=== PATIENT | female | born 1965 | race African-American/Black ===

== ENCOUNTER 2017-04-09 13:30 | Emergency (ER) | payer OTHER ==
[~2017-04-09] VITALS: Ht 167.6 cm; Wt 81.7 kg
[~2017-04-09 13:30] MED LIST: CARAFATE 1 GM TA1 G1 PO; FOLGARD TABLET1 EAC1 PO; NOHOMEMEDICATIONS; NORCO 5-325 TA1 EACH PO; ONDANSETRON HCL4 M2 PO; PEPCID40 MG PO; PREVACID 30MG C30 M1 PO
[2017-04-09 14:12] LABS: HEMATOCRIT 40.5 % (37.0-47.0); HEMOGLOBIN 13.5 gm/dL (12.0-15.0); MCH 30.8 pg (26.0-34.0); MCHC 33.4 g/dL (28.0-37.0); MCV 92.1 fL (80.0-100.0); PLATELET COUNT 227 thou/uL (150-400); RBC 4.39 mil/uL (4.20-5.00); RDW 13.1 % (10.5-14.5); WBC 4.9 thou/uL (4.0-11.0)
[2017-04-09 14:13] LABS: MANUAL DIFF YES
[2017-04-09 14:20] LABS: CALCIUM 9.4 mg/dL (8.5-10.1); POTASSIUM 4.5 mmol/L (3.5-5.1)
[2017-04-09 14:26] LABS: ALBUMIN 3.6 g/dL (3.4-5.0); TOTAL BILIRUBIN 0.3 mg/dL (<0.1-1.0); TOTAL PROTEIN 7.5 g/dL (6.4-8.2)
[2017-04-09 14:31] LABS: ABSOLUTE NEUTROPHILS 2.7 thou/uL (1.4-8.2); TOTAL CELL COUNT 100
[2017-04-09 14:32] LABS: PLATELET ESTIMATE NORMAL
[2017-04-09 14:56] LABS: URINE BILIRUBIN NEGATIVE (Negative); URINE BLOOD NEGATIVE (Negative); URINE COLOR YELLOW; URINE GLUCOSE-RANDOM* NEGATIVE (Negative); URINE KETONES NEGATIVE (Negative); URINE NITRITE POSITIVE (Negative); URINE PROTEIN (DIPSTICK) NEGATIVE (Negative); URINE SPECIFIC GRAVITY 1.025 (1.003-1.035); URINE UROBILINOGEN 0.2 E.U./dl (0.2-1.0)
[2017-04-09 16:17] LABS: BACTERIA >30 Many /HPF (None Seen); SQUAMOUS 4-10 Moderate /LPF (0-3)
[2017-04-09 16:18] LABS: CASTS None Seen /LPF (None Seen); CRYSTALS None Seen /LPF (None Seen); URINE RBC None Seen /HPF (0-2)
[2017-04-09] MEDS ORDERED: NORFLEX100 MG PO (16:36)
[2017-04-09] MEDS ORDERED: KEFLEX500 MG PO (16:36)
[2017-04-09] MEDS ORDERED: PREDNISONE 10 M10 MG PO (16:36)
[2017-04-09] MEDS ORDERED: PHENERGAN 25 MG25 M1 PO (16:36)
[2017-04-09] MEDS ORDERED: PHENAZOPYRIDIN200 M2 PO (16:36)
[2017-04-09 17:22] VITALS: BP 119/72
== END 2017-04-09 17:23 | disposition home or self-care (01) ==
LOC: ER 13:30
PROVIDERS: Physician Assistant
DX: M54.41 Lumbago with sciatica, right side (principal); N39.0 Urinary tract infection, site not specified; Z90.710 Acquired absence of both cervix and uterus